=== PATIENT | male | born 1985 | race Caucasian/White ===

== ENCOUNTER 2020-01-03 08:01 | Emergency (ER) | payer MEDICAID ==
[2020-01-03 09:04] LABS: APPEARANCE,URINE CLEAR; BILIRUBIN,URINE NEGATIVE (NEGATIVE); COLOR,URINE YELLOW; GLUCOSE, URINE 50 mg/dL (NEGATIVE); KETONES,URINE NEGATIVE (NEGATIVE); LEUKOCYTE ESTERASE,URINE NEGATIVE (NEGATIVE); NITRITE,URINE NEGATIVE (NEGATIVE); PROTEIN,URINE NEGATIVE (NEGATIVE); URINE SPECIFIC GRAVITY 1.016; UROBILINOGEN,URINE NEGATIVE mg/dL (<2.0)
[2020-01-03] MEDS ORDERED: CEFTRIAXONE INJ 250 MG VIAL IM ONE (10:05)
[2020-01-03] MEDS ORDERED: LIDOCAINE 1% INJ-PF (10 MG/ML) 30 ML SDV NEB ONE (10:05)
[2020-01-03] MEDS ORDERED: AZITHROMYCIN 1 GM SUSP PACKET PO ONE (10:05)
--- NOTE | 2020-01-03 10:05 | ER Document Report ---
ED GI/ - General Chief Complaint: Pain With Urination Stated Complaint: DARK URINE Time Seen by Provider: 01/03/20 09:09 Notes: HPI: Patient is a 34-year-old male who states for around 2 days he has had some pain with urination with pain to the tip of his penis. He denies any trauma. He denies any blood from the urethral meatus. He denies any obvious white discharge. He denies any abdominal pain, fevers, testicular pain or swelling, o r pain to any other location of the lower abdomen or pelvis. ROS: See HPI All other review of systems reviewed and otherwise negative Reviewed vital signs and nursing note as charted by RN. PHYSICAL EXAM: CONSTITUTIONAL: Alert and oriented and responds appropriately to questions. Well-appearing; well-nourished HEAD: Normocephalic; atraumatic ENT: No intraoral lesions present NECK: Supple without meningismus; non-tender; no cervical lymphadenopathy, no masses ABD/GI: Normal bowel sounds; non-distended; soft, non-tender; no palpable organomegaly or masses GI/: Patient has some mild redness to the tip of the penis. No obvious adhesions present. No lesions to the shaft or scrotal region. Testicles are bilateral and nontender and nonswollen. No perineal erythema present BACK: The back appears normal and is non-tender to palpation SKIN: No acute lesions noted NEURO: CN 2-12 intact; 5/5 bilateral upper and lower extremity strength with sensation intact to light touch PSYCH: The patient's mood and manner are appropriate. Grooming and personal hygiene are appropriate. TRAVEL OUTSIDE OF THE [place] IN LAST 30 DAYS: No - Related Data Allergies/Adverse Reactions: Sulfa (Sulfonamide Antibiotics) Allergy (Verified 01/03/20 08:49) Past Medical History - Social History Smoking Status: Current Every Day Smoker Chew tobacco use (# tins/day): No Frequency of alcohol use: Social Drug Abuse: Marijuana Family History: Reviewed & Not Pertinent Patient has suicidal ideation: No Patient has homicidal ideation: No Physical Exam - Vital signs Vitals: Temp Pulse Resp BP Pulse Ox 97.9 F 85 16 165/93 H 98 01/03/20 08:10 01/03/20 08:10 01/03/20 08:10 01/03/20 08:10 01/03/20 08:10 Course - Vital Signs Vital signs: Temp Pulse Resp BP Pulse Ox 97.9 F 85 16 165/93 H 98 01/03/20 08:10 01/03/20 08:10 01/03/20 08:10 01/03/20 08:10 01/03/20 08:10 - Laboratory Laboratory results interpreted by me: 01/03/20 08:38 Urine Glucose (UA) 50 H Discharge - Discharge Clinical Impression: Dysuria Condition: Good Disposition: HOME, SELF-CARE Additional Instructions: Come back immediately for any increased pain, discharge, fever vomiting, inability urinate, abdominal pain, back pain, or any other acute problems. Please refrain from any sexual activity until all results have been returned and any treatment that is required has been completed.
[2020-01-03 11:30] VITALS: BP 144/89
[2020-01-03 12:06] LABS: CHLAM PCR NOT DETECTED (NOT DETECT)
== END 2020-01-03 11:31 | disposition home or self-care (01) ==
LOC: ER 08:01
DX: R30.0 Dysuria (principal); F17.200 Nicotine dependence, unspecified, uncomplicated; Z88.2 Allergy status to sulfonamides
CPT/HCPCS: 99283; 96372; 36415; 82962; 86592; 81001; 87491; 87591; J3490; Q0144; J0696